=== PATIENT | female | born 1945 | race Caucasian/White ===

== ENCOUNTER 2020-06-14 10:45 | Outpatient (NON) | payer MEDICARE, SELFPAY ==
[2020-06-14 23:03] LABS: SARS-CoV-2 RNA PCR Negative
== END 2020-06-14 10:46 ==
DX: R50.9 Fever, unspecified (principal); Z20.828 Contact with and (suspected) exposure to other viral communicable diseases
CPT/HCPCS: 87635; C9803; U0003

== ENCOUNTER 2021-03-30 15:34 | Emergency (ER) | payer MEDICARE, SELFPAY ==
[2021-03-30] VITALS (18 sets, daily range): BP systolic 94–155; BP diastolic 37–95; PULSE 51–92; RESP 16–22; TEMP 37.2–38.7; O2SAT 96–100
--- NOTE | ~2021-03-30 | CT_ITS ---
EXAMINATION: CT abdomen pelvis w con DATE: 03/30/2021 16:56 INDICATION: Postoperative hematoma. TECHNIQUE: Computed tomography (CT) of the abdomen and pelvis was performed with 100 mL Omnipaque 350 intravenous contrast. Automated exposure control and iterative reconstruction technique were employe d. The dose-length product was 1506.25 mGy-cm. COMPARISON: CT abdomen and pelvis 11/25/2012 FINDINGS: The visualized portions of the lung bases demonstrate mild atelectasis. No pleural effusion . The heart size is normal. There are coronary artery calcifications. No pericardial effusion. The li robbie and spleen are normal. There are changes of cholecystectomy. The pancreas is normal. There are ma sses in the adrenal glands measuring up to 1.8 cm on the left without change, likely adenomas. There is cortical thinning of the kidneys. There is a 9 mm cyst in right kidney. The bladder is decompresse d by Simmons catheter. There is an anastomosis in the rectosigmoid. There is diverticulosis of the colo n without evidence of diverticulitis. The appendix is not visualized. There are no pathologically enl arged lymph nodes. There is no free intraperitoneal fluid. There are midline skin matthew. There is a 23.2 x 6.5 x 8.2 cm hematoma in anterior abdominal wall at the incision. At the superior aspect of the hematoma, there is a serpiginous area of hyperdensity, likely contrast extravasation. There are ventral hernias in the pelvis, one of which contains a portion of the bladde r. There is mild thoracolumbar spondylosis. IMPRESSION: 1. Large hematoma at the anterior abdominal wall incision with active extravasation of contrast. I ca lled this result to Dr. Montaño. 2. Ventral hernias in the pelvis, one of which contains a portion of the bladder. Reviewed, dictated and finalized at location A. IMPRESSION: 1. Large hematoma at the anterior abdominal wall incision with active extravasa tion of contrast. I called this result to Dr. Montaño. 2. Ventral hernias in the pelvis, one of which contains a portion of the bladde r.
--- NOTE | 2021-03-30 15:43 | ECG_ITS ---
Measurements Intervals [place] Rate: 86 P: 60 MT: 169 QRS: 99 QRSD: 94 T: 66 QT: 373 QTc: 447 Interpretive Statements SINUS RHYTHM RIGHT AXIS DEVIATION LOW QRS VOLTAGE IN LIMB LEADS BASELINE WANDER- I, II, AVR, AVF, V1-V3 BORDERLINE ECG Electronically Signed On 03-30-2021 16:35:31 CDT by Domingo Vance D.O.
--- NOTE | 2021-03-30 16:01 | ED.WOUNDLAC ---
HPI - Wound/Laceration General Chief Complaint: Wound/Laceration <Mina Montaño MD - Last Filed: 03/31/21 06:56> Stated Complaint: bleeding to abd <Mina Montaño MD - Last Filed: 03/31/21 06:56> Time Seen by Provider: 03/30/21 15:43 <Mina Montaño MD - Last Filed: 03/31/21 06:56> Source: patient <Mina Montaño MD - Last Filed: 03/31/21 06:56> History of Present Illness HPI narrative: Patient presents with bleeding from a postop wound. Patient reports she had partial colectomy for complicated diverticulitis on March 22 she was discharged home and started her Xarelto few days after her surgery. She noted small amount of bruising yesterday talked her surgeon and they recommended continued monitoring. There is a large amount of blood from her postop site she talk to her surgeon and they recommended evaluation in the ER. Her surgery was performed at [place]. Patient reports feeling lightheaded but denies focal areas of pain nausea vomiting or diarrhea <Mina Montaño MD - Last Filed: 03/31/21 06:56> Related Data Home Medications: Home Medications Medication Instructions Recorded Confirmed oxycodone 03/30/21 potassium chloride meq PO 03/30/21 ramipril mg PO 03/30/21 rivaroxaban mg 03/30/21 rosuvastatin mg 03/30/21 <Mina Montaño MD - Last Filed: 03/31/21 06:56> Allergies/Adverse Reactions: Allergies Allergy/AdvReac Type Severity Reaction Status Date / Time propoxyphene Allergy Mild Unknown Verified 03/30/21 15:56 OPIUM DERIVATIVE Allergy Mild Unknown Uncoded 03/30/21 15:56 <Mina Montaño MD - Last Filed: 03/31/21 06:56> Review of Systems Review of Systems: CONSTITUTIONAL: Denies fever, chills, or sweats. EYES: Denies visual changes, redness, or discharge. ENT: Denies rhinorrhea, congestion, sore throat, or otalgia. CARDIOVASCULAR: Denies chest pain, palpitations, or edema. RESPIRATORY: Denies cough or dyspnea. GASTROINTESTINAL: Denies abdominal pain, nausea, vomiting, or diarrhea. GENITOURINARY: Denies dysuria or hematuria. SKIN: Denies rash or itching. MUSCULOSKELETAL: Denies back pain, joint pain, or myalgia. NEUROLOGIC: Denies headache, numbness, dizziness, or weakness. PSYCHIATRIC: Denies anxiety or depression. <Mina Montaño MD - Last Filed: 03/31/21 06:56> All systems reviewed & are unremarkable except as noted in HPI and below <Mina Montaño MD - Last Filed: 03/31/21 06:56> Exam Narrative: GENERAL: Well-appearing, well-nourished, and in no acute distress. HEAD: Normocephalic, atraumatic. EYES: PERRLA and EOMI. ENT: Nares clear, no rhinorrhea or epistaxis. Mucous membranes moist. NECK: Supple. No masses. No JVD ABDOMEN: Patient with bulky dressings on her abdomen. Dressings were saturated with blood dressings were removed there is small continued bleeding from the inferior aspect of the wound site there is no wound dehiscence there is no apparent material. There is mild distention around the wound site. Mateo remain intact. Patient with minimal pain around the wound site. EXTREMITIES: Normal range of motion. No edema. SKIN: Warm, dry, no rash. NEURO: No focal deficits. Alert and oriented x3. PSYCH: Normal mood and affect. <Mina Montaño MD - Last Filed: 03/31/21 06:56> Course Course Emergency Course: I received signout from Dr. Montaño on the patient this evening. Patient with postoperative complication, abdominal wall hematoma with active extravasation. Patient was transfused 1 unit PRBCs with repeat hemoglobin 8.9. Patient unfortunately has had prolonged wait time for transport, and is now mildly hypotensive 94/61. Called for [facility] transport however no ambulance is available. Unfortunately, area [facility] is not clear to fly secondary to weather. Apparently ground transport is approximately 40 minutes out at 21:54. Patient ordered additional unit PRBC, however then [facility] presented to [facility]
[2021-03-30 16:09] LABS: Basophils Percent Auto 0.2 % (0.2-1.2); Eosinophils Absolute Auto 0.2 K/mm3 (0-0.3); Eosinophils Percent Auto 0.9 % (0-4.4); Hematocrit 29.5 % (37.0-47.0); Hemoglobin 9.1 g/dL (12.0-15.0); Immature Granulocyte Absolute 0.25 K/mm3 (0.00-0.031); Immature Granulocyte Percent A 1.5 % (0-0.5); Lymphocytes Absolute Auto 1.98 K/mm3 (0.9-3.2); Lymphocytes Percent Auto 11.7 % (18.3-44.2); Mean Corpuscular HGB Conc 30.8 g/dl (32-36); Mean Corpuscular Hemoglobin 27.1 pg (26-34); Mean Corpuscular Volume 87.8 fl (80-100); Mean Platelet Volume 8.8 fl (7.4-10.4); Monocytes Absolute Auto 0.9 K/mm3 (0.1-0.6); Monocytes Percent Auto 5.5 % (2.6-8.5); Neutrophils Absolute Auto 13.5 K/mm3 (1.3-6.7); Neutrophils Percent Auto 80.2 % (45.5-73.1); Platelet Count Result 428 k/mm3 (150-375); Red Blood Count 3.36 M/mm3 (4.2-5.4); Red Cell Distribution Width 14.2 % (11.5-14.5); White Blood Count 16.9 K/mm3 (4.5-10.0)
[2021-03-30 16:20] LABS: INR 3.7; Prothrombin Time 35.2 Seconds (11.1-14.7)
[2021-03-30 16:21] LABS: Partial Thromboplastin Time 49.3 SECONDS (22.3-36.8)
[2021-03-30 16:30] LABS: Alanine Aminotransferase 10 U/L (4-35); Albumin Level 3.5 g/dL (3.5-5.1); Alkaline Phosphatase 72 U/L (38-126); Anion Gap 8 mmol/L (8-16); Aspartate Amino Transferase 16 U/L (14-36); Bilirubin,Total 0.7 mg/dL (0.2-1.3); Blood Urea Nitrogen 12 mg/dL (7-17); Carbon Dioxide 31 mmol/L (22-30); Chloride 97 mmol/L (98-107); Estimated Glomerular Filt Rate > 60; Glucose 144 mg/dL (65-110); Potassium 3.4 mmol/L (3.4-5.0); Sodium 136 mmol/L (137-145)
[2021-03-30] MEDS: fentaNYL CITRATE INJ (*CRX) 100 MCG/2 ML VIAL 50 MCG IV PUSH (16:31)
[2021-03-30] MEDS: diphenhydrAMINE HCl INJ 50 MG/ML VIAL 25 MG IV PUSH (16:31)
[2021-03-30 16:41] LABS: Troponin I < 0.012 ng/mL (0.000-0.034)
[2021-03-30 16:58] LABS: Lactic Acid Reflex 1.5 mmol/L (0.7-2.1)
--- NOTE | 2021-03-30 17:46 | PC.NURSE ---
Called lab at 1747, talked to Zackary about the lavender order. Confirmation tube sent at 1703 was received and a new lavender does not need to be drawn.
[2021-03-30] MEDS: SODIUM CHLORIDE 0.9% IV 250 ML 30 ML IV CONT (18:00)
--- NOTE | 2021-03-30 18:00 | PC.NURSE ---
Pt now in a-fib, reports hx of paroxysmal a-fib. made aware. Blood products started.
[2021-03-30] MEDS: TUBING, BLOOD PLUM PUMP TUBING 1 EACH XX (18:37)
--- NOTE | 2021-03-30 18:39 | PC.NURSE ---
Pt appears slightly more tired, remains easily arousable. Made some comments about bridges and that she should've stayed home that she would be more comfortable . Pt reminded of her heavy bleeding. Pt able to answer all orientation questions appropriately. Blood products transfusing. VS remain consistent. Will continue to monitor.
--- NOTE | 2021-03-30 18:47 | PC.NURSE ---
[facility] accepted transfer to [facility] 2029 Trip # [id number]
--- NOTE | 2021-03-30 19:53 | PC.NURSE ---
Report called to Escobar ROES at [facility]. Pt updated and waiting transfer to [facility]. Pt watching TV, requesting pain medication. Will speak with MD. Pt's remains at bedside.
--- NOTE | 2021-03-30 19:55 | PC.NURSE ---
RN to bedside to stop blood transfusion. Pt found to be laying on her right side. Blood seeping through bottom of abd pad, gown, and through blankets. Patient assisted back to supine position and reminded/educated on the importance of lying supine to minimize bleeding. Pt verbalized understanding and provided pain medication. Waiting transfer.
[2021-03-30] MEDS: MORPHINE SULFATE (*CRX) 4 MG/ML INJ IV PUSH (20:09)
[2021-03-30 20:36] LABS: Hematocrit 28.3 % (37.0-47.0); Hemoglobin 8.9 g/dL (12.0-15.0); Mean Corpuscular HGB Conc 31.4 g/dl (32-36); Mean Corpuscular Hemoglobin 28.3 pg (26-34); Mean Corpuscular Volume 89.8 fl (80-100); Mean Platelet Volume 8.8 fl (7.4-10.4); Platelet Count Result 443 k/mm3 (150-375); Red Blood Count 3.15 M/mm3 (4.2-5.4); Red Cell Distribution Width 14.5 % (11.5-14.5); White Blood Count 23.1 K/mm3 (4.5-10.0)
--- NOTE | 2021-03-30 20:55 | PC.NURSE ---
made contact with [employer] for a new eta. company stated it will be 45 minutes from 2049.
[2021-03-30 21:05] LABS: Band Neutrophils Percent 2 % (0-6); Lymphocytes Absolute Manual 2.07 K/mm3 (1.1-4.5); Monocytes Absolute Manual 0.46 K/mm3 (0.1-0.90); Monocytes Percent Manual 2 % (3-9); Neutrophils Absolute Manual 20.55 K/mm3 (1.7-7.2); Neutrophils Percent Manual 87 % (46-73); Total Cells Counted 100
[2021-03-30 21:06] LABS: Hypochromasia 1+ (NORMAL); Platelet Estimate Increased (Adequate)
--- NOTE | 2021-03-30 21:42 | PC.NURSE ---
per dr boswell [facility] have been called on this pt due to a hemorrhage
--- NOTE | 2021-03-30 21:47 | PC.NURSE ---
made contact with [employer] at 2154 company stated crew would be here at 2144 with [employer]. company just stated that their crew has not yet left [place] that they will call to let them know they are cleared to come to [facility]
--- NOTE | 2021-03-30 22:22 | PC.NURSE ---
[facility] has made it to [facility]. crew is aware pt is going to [facility]
--- NOTE | 2021-03-30 22:26 | PC.NURSE ---
made contact with [facility] at 2152 for life flight to [facility]. eta 1hour. [facility] declined due to urgency in getting pt to facility. made contact with [facility] [employer] @ 2200. [facility] declined due to pt already being in the er. company stated they were fine in the er here and gave us an eta with 2300. made contact with [facility] for possible transfer and facility did not have the resources to transfer pt
--- NOTE | 2021-03-30 22:44 | PC.NURSE ---
Report given to [facility]. Patient being transferred now. A&Ox4 at time of transfer, in good spirits. Dressings reinforced, gown changed. BP 100/63.
== END 2021-03-30 22:50 | disposition short-term general hospital (02) ==
PROVIDERS: Emergency Medicine; Emergency Provider Emergency Medicine
DX: L76.32 Postprocedural hematoma of skin and subcutaneous tissue following other procedure (principal); T81.31XA Disruption of external operation (surgical) wound, not elsewhere classified, initial encounter; Z79.01 Long term (current) use of anticoagulants; Z90.49 Acquired absence of other specified parts of digestive tract; K43.9 Ventral hernia without obstruction or gangrene; R94.31 Abnormal electrocardiogram [ECG] [EKG]
CPT/HCPCS: 36415; 36430; 51702; 74177; 80053; 83605; 84484; 85025; 85610; 85730; 86850; 86900; 86901; 86920; 93005; 96361; 96374; 96375; 99285; J1200; J2270; J3010; J7050; P9016; Q9967

== ENCOUNTER 2022-03-04 18:38 | Emergency (ER) | payer MEDICARE, SELFPAY ==
--- NOTE | ~2022-03-04 | XR_ITS ---
EXAMINATION: XR chest 1V portable Exam Date/Time: 03/04/2022 19:18 CDT HISTORY: palpitations, SVT; hx of HTN Comparison: 11/25/12. RESULT: Lines, tubes, and devices: None. Lungs and pleura: Senescent change and bibasilar atelectasis. Cardiomediastinal silhouette: Stable. Other: No acute osseous or upper abdominal finding. IMPRESSION: No acute cardiopulmonary process. Reviewed, dictated and finalized at location K.
[2022-03-04 18:40] VITALS: BP 121/96; PULSE 76; RESP 24; TEMP 36.7; O2SAT 98
--- NOTE | 2022-03-04 18:45 | ED.ARRPALP ---
HPI - Arrhythmia/Palpitations General Chief Complaint: Arrhythmia/Palpitations Stated Complaint: SVT Time Seen by Provider: 03/04/22 18:45 History of Present Illness HPI narrative: Patient is a 76-year-old female with a history of paroxysmal A. fib hypertension, hyperlipidemia, DVT on Xarelto presenting with palpitations. Patient states she first noticed heart palpitations last night. They continued today and then the patient became very lightheaded so they checked her pulse at home and found it to be 200. EMS was called and found the patient to be in SVT. Vagal maneuvers were tried twice without improvement so patient was given 6 mg of adenosine. Patient converted to sinus rhythm following this. Currently, patient states that she feels much better. No longer lightheaded. She denies any chest pain or shortness of breath. She denies headache, fevers, cough, abdominal pain, nausea or vomiting, dysuria. Related Data Home Medications Medication Instructions Recorded Confirmed oxycodone 5 mg tablet 03/30/21 potassium chloride 10 mEq meq PO 03/30/21 tablet,extended release ramipril 10 mg tablet mg PO 03/30/21 rivaroxaban 20 mg tablet mg 03/30/21 rosuvastatin 5 mg tablet mg 03/30/21 Allergies Allergy/AdvReac Type Severity Reaction Status Date / Time propoxyphene Allergy Mild Unknown Verified 03/04/22 18:46 OPIUM DERIVATIVE Allergy Mild Unknown Uncoded 03/04/22 18:46 Review of Systems Review of Systems: All systems reviewed & are unremarkable except as noted in HPI and below Exam Narrative: GENERAL: Well-appearing, well-nourished, and in no acute distress. HEAD: Normocephalic, atraumatic. EYES: PERRLA and EOMI. ENT: Nares clear, no rhinorrhea or epistaxis. Mucous membranes moist. NECK: Supple. CHEST: Clear to auscultation. No respiratory distress. HEART: Regular rate and rhythm. No murmur heard. Normal peripheral pulses. ABDOMEN: large abdominal hernia, Soft, nontender, nondistended, normal active bowel sounds. EXTREMITIES: Normal range of motion. No edema. SKIN: Warm, dry, no rash. NEURO: No focal deficits. Alert and oriented x3. PSYCH: Normal mood and affect. Course Vital Signs Vital signs: Vital Signs Temperature 98.0 F 03/04/22 18:40 Pulse Rate 76 03/04/22 18:40 Respiratory Rate 24 H 03/04/22 18:40 Blood Pressure 121/96 H 03/04/22 18:40 Pulse Oximetry 98 03/04/22 18:40 Oxygen Delivery Room Air 03/04/22 18:40 Temperature 98.0 F 03/04/22 18:40 Pulse Rate 73 03/04/22 21:47 Respiratory Rate 17 03/04/22 21:47 Blood Pressure 132/71 03/04/22 21:47 Pulse Oximetry 98 03/04/22 21:47 Oxygen Delivery Room Air 03/04/22 18:40 MDM - Arrhythmia/Palpitations MDM Narrative Medical decision making narrative: Patient is a 76-year-old female with history as above presenting with palpitations. On arrival, vitals are within normal limits. Patient is well-appearing and in no acute distress. Exam is remarkable for the above. EKG per my interpretation shows normal sinus rhythm, normal axis and intervals, no ST elevations or depressions. Blood work with stable anemia. Troponin is undetectable. Chest x-ray with no acute abnormalities. On reevaluation, the patient continues to feel well. Patient's vitals have remained within normal limits and she has remained in sinus on the monitor. I spoke with cardiology who feels patient can follow-up on an outpatient basis with her established social sciences chair. Patient is agreeable with this plan. Strict return precautions were given. Patient discharged in stable condition. Lab Data Result diagrams: 03/04/22 19:42 03/04/22 19:42 Labs: Lab Results 03/04/22 03/04/22 03/04/22 Range/Units 19:42 19:42 19:42 WBC 7.9 (4.5-10.0) K/mm3 RBC 3.86 L (4.2-5.4) M/mm3 Hgb 9.5 L (12.0-15.0) g/dL Hct 31.7 L (37.0-47.0) % MCV 82.1 (80-100) fl MCH 24.6 L (26-34) pg MCHC 30.0 L (
[2022-03-04 18:47] VITALS: PULSE 76
--- NOTE | 2022-03-04 18:47 | ECG_ITS ---
Measurements Intervals [place] Rate: 82 P: 73 [place]: 169 QRS: 79 QRSD: 92 T: 59 QT: 389 QTc: 455 Interpretive Statements SINUS RHYTHM WITH SINUS ARRHYTHMIA ATRIAL COUPLET BORDERLINE ST-T WAVE ABNORMALITY- HIGH LATERAL LEADS BASELINE ARTIFACT- I, II, III, AVR, AVL BORDERLINE ECG COMPARED TO ECG 03/30/2021 16:33:40 NO SIGNIFICANT CHANGES Electronically Signed On 03-04-2022 21:49:44 CDT by Domingo Vance D.O.
[2022-03-04 19:21] VITALS: BP 136/66; PULSE 71; RESP 14; O2SAT 98
--- NOTE | 2022-03-04 19:21 | PC.NURSE ---
Assumed care of pt at this time. Pt alert and upright on stretcher, family and pt updated on POC.
[2022-03-04 19:47] LABS: Basophils Percent Auto 0.4 % (0.2-1.2); Eosinophils Absolute Auto 0.2 K/mm3 (0-0.3); Eosinophils Percent Auto 2.9 % (0-4.4); Hematocrit 31.7 % (37.0-47.0); Hemoglobin 9.5 g/dL (12.0-15.0); Immature Granulocyte Percent A 1.3 % (0-0.5); Lymphocytes Absolute Auto 2.51 K/mm3 (0.9-3.2); Lymphocytes Percent Auto 31.6 % (18.3-44.2); Mean Corpuscular Hemoglobin 24.6 pg (26-34); Mean Corpuscular Volume 82.1 fl (80-100); Monocytes Absolute Auto 0.5 K/mm3 (0.1-0.6); Monocytes Percent Auto 6.4 % (2.6-8.5); Neutrophils Absolute Auto 4.6 K/mm3 (1.3-6.7); Neutrophils Percent Auto 57.4 % (45.5-73.1); Platelet Count Result 307 k/mm3 (150-375); Red Blood Count 3.86 M/mm3 (4.2-5.4); Red Cell Distribution Width 16.4 % (11.5-14.5); White Blood Count 7.9 K/mm3 (4.5-10.0)
[2022-03-04 19:57] LABS: Alanine Aminotransferase 15 U/L (6-35); Albumin Level 3.5 g/dL (3.5-5.1); Alkaline Phosphatase 117 U/L (38-126); Anion Gap 9 mmol/L (8-16); Aspartate Amino Transferase 23 U/L (14-36); Bilirubin,Total 0.3 mg/dL (0.2-1.3); Blood Urea Nitrogen 17 mg/dL (7-17); Calcium 8.7 mg/dL (8.4-10.2); Carbon Dioxide 24 mmol/L (22-30); Chloride 105 mmol/L (98-107); Estimated Glomerular Filt Rate > 60; Glucose 102 mg/dL (65-110); Potassium 3.7 mmol/L (3.4-5.0); Sodium 138 mmol/L (137-145)
[2022-03-04 20:05] LABS: INR 2.2; Prothrombin Time 23.9 Seconds (11.1-14.7)
[2022-03-04 20:06] LABS: Partial Thromboplastin Time 42.7 SECONDS (22.3-36.8)
[2022-03-04 20:09] LABS: NT Pro B Type Natriuretic Pept 1320 pg/mL (5-100); Troponin I < 0.012 ng/mL (0.000-0.034)
[2022-03-04 20:13] VITALS: PULSE 72; RESP 16; O2SAT 99
[2022-03-04 20:39] VITALS: BP 130/86; PULSE 67; RESP 18
[2022-03-04 21:47] VITALS: BP 132/71; PULSE 73; RESP 17; O2SAT 98
== END 2022-03-04 21:48 | disposition home or self-care (01) ==
PROVIDERS: Emergency Provider Emergency Medicine
DX: I47.1 Supraventricular tachycardia (principal); I48.0 Paroxysmal atrial fibrillation; I10 Essential (primary) hypertension; E78.5 Hyperlipidemia, unspecified; K46.9 Unspecified abdominal hernia without obstruction or gangrene; Z86.718 Personal history of other venous thrombosis and embolism; Z79.01 Long term (current) use of anticoagulants
CPT/HCPCS: 36415; 71045; 80053; 83880; 84484; 85025; 85610; 85730; 93005; 99284

== ENCOUNTER 2022-05-28 21:36 | Emergency (ER) | payer MEDICARE, SELFPAY ==
--- NOTE | ~2022-05-28 | XR_ITS ---
EXAM: XR knee RT min 4V DATE: 05/28/2022 22:15 HISTORY: right knee pain. FELL EARLY ON TONIGHT. . COMPARISON: None available. FINDINGS: Decreased mineralization. Intact total knee arthroplasty components, in good position, and multiple cerclage wires, likely related to patellar realignment. No perihardware lucency. No acute o sseous fracture or dislocation. No lytic or blastic lesion. Joint spaces are maintained. No erosion o r periosteal change. Presumed chronic patellar tendon thickening and enthesopathy. Scattered subcutan eous edema IMPRESSION: No acute osseous finding in the right knee. No radiographic evidence of hardware-related complication. Reviewed, dictated and finalized at location K. MACY SALESPERSON IMPRESSION: No acute osseous finding in the right knee. No radiographic evidenc e of hardware-related complication.
--- NOTE | ~2022-05-28 | XR_ITS ---
EXAMINATION: XR chest 1V Exam Date/Time: 05/28/2022 22:05 LAY OUT MAKER HISTORY: Fall on thinners Comparison: 03/04/2022 and 11/25/2012. RESULT: Lines, tubes, and devices: None. Lungs and pleura: Senescent change. Bibasilar scar/atelectasis. Minimal increased peripheral reticul ar opacities. Cardiomediastinal silhouette: Stable. Other: No acute osseous or upper abdominal finding. IMPRESSION: Mild interstitial edema, otherwise no acute cardiopulmonary process. Reviewed, dictated and finalized at location K. OUT MAKER
--- NOTE | ~2022-05-28 | XR_ITS ---
EXAMINATION: XR hip RT 2V w AP pelvis DATE: 05/28/2022 23:42 INDICATION: Right hip pain. TECHNIQUE: An anteroposterior view of the pelvis and 2 views of right hip were obtained. COMPARISON: Abdomen radiographs 09/01/2009, CT abdomen and pelvis 03/30/2021 FINDINGS: Bone alignment is normal. No fracture. There is mild osteoarthritis of the hips. There is c hronic heterotopic ossification adjacent to right greater trochanter and distal to right ischial tube rosity. Partially visualized is instrumentation of distal right femur. There is mild lumbar spondylos is. Surgical clips overlie the pelvis. IMPRESSION: 1. Mild osteoarthritis of the hips. Reviewed, dictated and finalized at location A. TITUTE CROSSING GUARD
--- NOTE | ~2022-05-28 | CT_ITS ---
EXAMINATION: CT facial & cervical spine wo DATE: 05/28/2022 22:29 INDICATION: Fall on thinners TECHNIQUE: Computed tomography (CT) of the maxillofacial region and cervical spine was performed with out intravenous contrast. Automated exposure control and iterative reconstruction technique were empl oyed. The dose-length product was 386.07 mGy-cm. COMPARISON: None FINDINGS: CERVICAL: Vertebral Body Alignment: Reversed cervical lordosis which can occur with positioning or muscle spasm . 2 mm anterolisthesis of C2 on 3, presumably on a degenerative basis. Craniocervical and atlantoaxial alignment: Moderate degenerative change. Alignment intact. Osseous structures/fracture: No evidence of a lytic or blastic process in the visualized spine. No e vidence of acute fracture. Cervical soft tissues: The paraspinal soft tissues planes are maintained. Reticular and groundglass o pacities in the upper lungs. Degenerative changes: Multilevel degenerative disc disease and facet arthropathy. No severe central c anal or neural foraminal narrowing. FACE: Soft Tissues: No significant superficial soft tissue swelling. Facial bones: Mild deformity and leftward displacement of the nasal bones. No lytic or blastic proce ss. Eyes: The globes are intact. Bilateral lens replacements. The soft tissue planes of the orbits are m aintained. Paranasal Sinuses: Mild mucosal thickening in the ethmoid sphenoid and maxillary sinuses. Aerated se cretions in the bilateral maxillary and sphenoid sinuses. Trace left mastoid fluid, without evidence of temporal bone fracture. Foreign Bodies: No radiopaque foreign bodies. Other Findings: None. IMPRESSION: No acute fracture or traumatic malalignment in the cervical spine. Pulmonary opacities may represent interstitial edema. Possible nasal bone fractures, correlate with pain/tenderness. Paranasal sinus fi ndings may reflect acute sinusitis or mucosal hemorrhage in the setting of trauma. Reviewed, dictated and finalized at location K. OW UP SPECIALIST IMPRESSION: No acute fracture or traumatic malalignment in the cervical spine. Pulmonary op acities may represent interstitial edema. Possible nasal bone fractures, correl ate with pain/tenderness. Paranasal sinus findings may reflect acute sinusitis or mucosal hemorrhage in the setting of trauma.
--- NOTE | ~2022-05-28 | CT_ITS ---
EXAMINATION: CT brain wo con DATE: 05/28/2022 22:29 INDICATION: Fall on thinners . TECHNIQUE: Computed tomography (CT) of the head was performed without intravenous contrast. The mA wa s adjusted according to patient size. Iterative reconstruction technique was employed. The dose-lengt h product was 605.33 mGy-cm. COMPARISON: None. FINDINGS: No acute intracranial hemorrhage or extra-axial fluid collection. No hydrocephalus, mass, or herniation. No acute ischemic infarct. Unremarkable dural venous sinus attenuation. No acute osseous abnormality in the skull. Right posterior osteoma. Mild irregularity and leftward di splacement of the nasal bones. Aerated secretions in the maxillary and sphenoid sinuses aerated spaces are clear. Mild atrophy and chronic white matter change. Prominent CSF density bifrontal extra-axial spaces with a possible right hemispheric arachnoid cyst near the vertex. Atherosclerotic intracranial calcificat ion. Bilateral lens replacements. IMPRESSION: No acute intracranial process. Possible nasal bone fracture. Aerated secretions in the paranasal sinu ses may represent acute sinusitis or mucosal hemorrhage in the setting of trauma Reviewed, dictated and finalized at location [facility] IMPRESSION: No acute intracranial process. Possible nasal bone fracture. Aerated secretions in the paranasal sinuses may represent acute sinusitis or mucosal hemorrhage i n the setting of trauma
[2022-05-28 21:38] VITALS: BP 184/76; PULSE 55; RESP 20; TEMP 36.6; O2SAT 100
--- NOTE | 2022-05-28 21:48 | ECG_ITS ---
Measurements Intervals [place] Rate: 49 P: 72 [place]: 189 QRS: 97 QRSD: 101 T: 74 QT: 407 QTc: 370 Interpretive Statements SINUS BRADYCARDIA BORDERLINE RIGHT AXIS DEVIATION [QRS AXIS > 90] NONSPECIFIC ST AND T-WAVE ABNORMALITY COMPARED TO ECG 03/04/2022 18:43:39 SINUS BRADYCARDIA NOW PRESENT Electronically Signed On 05-29-2022 16:22:34 OVERNIGHT ASSOCIATE by Natalia Mooney M.D.
[2022-05-28] MEDS: ACETAMINOPHEN 500 MG TABLET 1000 MG PO (22:38)
--- NOTE | 2022-05-28 22:55 | ED.GENADULT ---
HPI - General Adult General Chief complaint: Wound/Laceration <JAN Jane Last Filed: 05/29/22 01:59> Stated complaint: Fall, Hit Head, Nose Laceration <JAN Jane Last Filed: 05/29/22 01:59> Time Seen by Provider: 05/28/22 22:05 <JAN Jane Last Filed: 05/29/22 01:59> Source: patient and family <JAN Jane Last Filed: 05/29/22 01:59> Mode of arrival: EMS <JAN Jane Last Filed: 05/29/22 01:59> Limitations: no limitations <JAN Jane Last Filed: 05/29/22 01:59> History of Present Illness HPI narrative: Patient is a 76-year-old female who presents the ED via EMS with report of a fall with head injury. Patient reports she was walking with her walker today when she tripped over her [employer] sandals. She fell to the ground and hit her head against the tile floor. She sustained a small abrasion to the bridge of her nose and did have bilateral epistaxis. No LOC. Family was unable to get patient off the ground so EMS was called. Patient also c/o pain to her R knee and R hip. She sustained a small skin tear to her inner R forearm. She denied any prodromal sx's prior to the fall, dizziness, lightheadedness, headache, CP, nausea, vomiting, neck pain, back pain. Patient does mention being slightly SOB recently. She is recovering from COVID 19 last week. Patient is on Eliquis d/t Hx of afib. <JAN Jane Last Filed: 05/29/22 01:59> Related Data Home medications: Home Medications Medication Instructions Recorded Confirmed oxycodone 5 mg tablet 03/30/21 potassium chloride 10 mEq meq PO 03/30/21 tablet,extended release ramipril 10 mg tablet mg PO 03/30/21 rivaroxaban 20 mg tablet mg 03/30/21 rosuvastatin 5 mg tablet mg 03/30/21 <Vania Carranza PA-C - Last Filed: 05/29/22 01:59> Allergies/adverse reactions: Allergies Allergy/AdvReac Type Severity Reaction Status Date / Time propoxyphene Allergy Mild Unknown Verified 03/04/22 18:46 OPIUM DERIVATIVE Allergy Mild Unknown Uncoded 03/04/22 18:46 <Vania Carranza PA-C - Last Filed: 05/29/22 01:59> Review of Systems Review of Systems: CONSTITUTIONAL: Denies fever, chills, or sweats. EYES: Denies visual changes. ENT: Reports epistaxis. Denies rhinorrhea, congestion, sore throat. CARDIOVASCULAR: Denies chest pain, palpitations. RESPIRATORY: Denies cough or dyspnea. GASTROINTESTINAL: Denies abdominal pain, nausea, vomiting, or diarrhea. GENITOURINARY: Denies dysuria or hematuria. SKIN: Reports skin tear to R forearm. MUSCULOSKELETAL: Reports R knee pain, R hip pain. Denies neck or back pain. NEUROLOGIC: Reports HI. Denies LOC, dizziness, lightheadedness, headache, numbness, or weakness. <Vania Carranza PA-C - Last Filed: 05/29/22 01:59> All systems reviewed & are unremarkable except as noted in HPI and below <Vania Carranza PA-C - Last Filed: 05/29/22 01:59> [facility] Past Medical History Medical History: Medical History (Updated 05/30/22 @ 00:00 by Maia Daniel) Anxiety Atrial fibrillation CHF (congestive heart failure) GERD (gastroesophageal reflux disease) History of femur fracture HTN (hypertension) <Vania Carranza PA-C - Last Filed: 05/29/22 01:59> Surgical History Surgical History: Surgical History (Updated 05/29/22 @ 00:16 by Vania Carranza PA-C) History of right knee joint replacement <Vania Carranza PA-C - Last Filed: 05/29/22 01:59> Social History Social History: Social History (Updated 05/29/22 @ 00:17 by Vania Carranza PA-C) Smoking status: Never smoker <Vania Carranza PA-C - Last Filed: 05/29/22 01:59> Exam Narrative: GENERAL: Well appearing, morbidly obese, non-toxic, in no acute distress. HEAD: Normocephalic, atraumatic. EYES: PERRLA/EOMI, conjunctiva clear. ENT: Small abrasion to bridge of
[2022-05-28 23:56] VITALS: BP 160/64; PULSE 52; RESP 18; O2SAT 93
[2022-05-28 23:57] LABS: Appearance Urine Cloudy (Clear); Bilirubin Urine Negative (Negative); Blood Urine Trace-intact (Negative); Color Urine Yellow (Yellow); Glucose Urine UA Negative (Negative); Ketones Urine Negative (Negative); Leukocyte Esterase Ur 1+ LEU/UL (Negative); Nitrate Urine Positive (Negative); Protein Urine 2+ mg/dL (Negative); Specific Grav Ur 1.015 (1.001-1.035); Urobilinogen Urine 0.2 mg/dL (<2.0); pH Urine 6.5 (5.0-9.0)
[2022-05-29 00:01] LABS: Bacteria Urine 3+ /hpf; Mucus Urine Rare /lpf; RBC Urine 0-2 /hpf (0-2); Squamous Epithelial Cell Urine Few /hpf (Few); WBC Urine 21-30 /hpf
[2022-05-29 00:02] LABS: Add Urine Microscopic? YES
[2022-05-29 00:21] LABS: NT Pro B Type Natriuretic Pept 1810 pg/mL (5-100); Troponin I < 0.012 ng/mL (0.000-0.034)
[2022-05-29] MEDS: CEPHALEXIN 500 MG CAPSULE PO (01:06)
[2022-05-29 01:07] VITALS: BP 177/67; PULSE 52; RESP 19; O2SAT 92
[2022-05-29 01:12] LABS: Glucose Point of Care 148 mg/dl (65-105)
== END 2022-05-29 02:00 | disposition home or self-care (01) ==
PROVIDERS: Physician Assistant; Emergency Provider Emergency Medicine
DX: S02.2XXA Fracture of nasal bones, initial encounter for closed fracture (principal); S51.811A Laceration without foreign body of right forearm, initial encounter; N39.0 Urinary tract infection, site not specified; I48.91 Unspecified atrial fibrillation; I50.9 Heart failure, unspecified; I11.0 Hypertensive heart disease with heart failure; K21.9 Gastro-esophageal reflux disease without esophagitis; Z96.651 Presence of right artificial knee joint; Z86.16 Personal history of COVID-19; Z79.01 Long term (current) use of anticoagulants; R00.1 Bradycardia, unspecified; R94.31 Abnormal electrocardiogram [ECG] [EKG]; M16.0 Bilateral primary osteoarthritis of hip; J81.1 Chronic pulmonary edema; W18.09XA Striking against other object with subsequent fall, initial encounter
CPT/HCPCS: 36415; 70450; 70486; 71045; 72125; 73502; 73564; 81001; 82948; 83880; 84484; 87077; 87086; 87186; 93005; 99284; A9270

== ENCOUNTER 2022-08-08 12:09 | Outpatient (RCR) | payer MEDICARE, SELFPAY | END 2022-08-08 12:12 | disposition home or self-care (01) | LOC: ANHPT 12:09 | PROVIDERS: Visit Provider Specialist | DX: Z47.1 Aftercare following joint replacement surgery (principal); Z96.652 Presence of left artificial knee joint | CPT/HCPCS: 99199 ==

== ENCOUNTER 2023-01-09 18:07 | Emergency (ER) | payer MEDICARE, SELFPAY ==
[2023-01-09] VITALS (17 sets, daily range): BP systolic 114–155; BP diastolic 76–107; PULSE 68–161; RESP 17–24; TEMP 36.6; O2SAT 91–96
--- NOTE | ~2023-01-09 | CT_ITS ---
EXAMINATION: CTA chest abdomen pelvis DATE: 01/09/2023 19:47 CDT INDICATION: Atrial fibrillation. Mesenteric ischemia. Small bowel obstruction. TECHNIQUE: Computed tomographic angiography (CTA) of the chest, abdomen, and pelvis was performed wit hout and with 100 mL Omnipaque-350 intravenous contrast. The dose-length product was 1686.89 mGy-cm. Maximum intensity projection 3D-reconstructions of the aorta and other arteries were constructed by flores casas technologist on a separate workstation. COMPARISON: None. FINDINGS: CHEST CTA: No evidence for aortic aneurysm or dissection. The celiac axis, SMA, renal arteries are patent. The I MA appears to be thrombosed. No significant pleural or pericardial effusion. No thoracic lymphadenopa thy. Calcified granuloma right upper thorax. No endobronchial lesions. There is dependent atelectasis . No evidence for pulmonary embolism. There is scoliosis. ABDOMEN AND PELVIS CTA: There is atherosclerosis. No aneurysm or dissection. No lymphadenopathy. There is a large right parac entral hernia containing bowel. Contained in the hernia are normal caliber and dilated small bowel lo ops. No definitive transition site is identified. The liver, spleen, pancreas, and kidneys are unrema rkable. There are bilateral adrenal masses which are low density, most likely benign adenomas. There are cholecystectomy clips. IMPRESSION: 1. Dilated fluid-filled small bowel loops with normal caliber distal small bowel. Definitive transiti on site not identified. Occluded inferior mesenteric artery. Differential diagnosis includes ischemic bowel and small bowel obstruction secondary to adhesions or hernia. Reviewed, dictated and finalized at location A. IMPRESSION: 1. Dilated fluid-filled small bowel loops with normal caliber distal small vijay l. Definitive transition site not identified. Occluded inferior mesenteric jessica ry. Differential diagnosis includes ischemic bowel and small bowel obstruction secondary to adhesions or hernia.
[2023-01-09 18:33] LABS: Basophils Percent Auto 0.3 % (0.2-1.2); Eosinophils Percent Auto 0.1 % (0-4.4); Hematocrit 42.1 % (37.0-47.0); Hemoglobin 13.3 g/dL (12.0-15.0); Immature Granulocyte Absolute 0.18 K/mm3 (0.00-0.031); Immature Granulocyte Percent A 1.2 % (0-0.5); Lymphocytes Absolute Auto 1.55 K/mm3 (0.9-3.2); Lymphocytes Percent Auto 10.5 % (18.3-44.2); Mean Corpuscular HGB Conc 31.6 g/dl (32-36); Mean Corpuscular Hemoglobin 28.1 pg (26-34); Monocytes Absolute Auto 0.6 K/mm3 (0.1-0.6); Monocytes Percent Auto 3.8 % (2.6-8.5); Neutrophils Absolute Auto 12.4 K/mm3 (1.3-6.7); Neutrophils Percent Auto 84.1 % (45.5-73.1); Platelet Count Result 324 k/mm3 (150-375); Red Blood Count 4.73 M/mm3 (4.2-5.4); Red Cell Distribution Width 16.2 % (11.5-14.5); White Blood Count 14.7 K/mm3 (4.5-10.0)
[2023-01-09 18:40] LABS: Alanine Aminotransferase 21 U/L (6-35); Albumin Level 4.5 g/dL (3.5-5.1); Alkaline Phosphatase 125 U/L (38-126); Anion Gap 12 mmol/L (8-16); Aspartate Amino Transferase 20 U/L (14-36); Bilirubin,Total 1.1 mg/dL (0.2-1.3); Blood Urea Nitrogen 23 mg/dL (7-17); Calcium 9.3 mg/dL (8.4-10.2); Carbon Dioxide 27 mmol/L (22-30); Chloride 101 mmol/L (98-107); Estimated Glomerular Filt Rate > 60; Glucose 151 mg/dL (65-110); Lipase 70 U/L (23-300); Potassium 4.1 mmol/L (3.4-5.0); Sodium 140 mmol/L (137-145)
--- NOTE | 2023-01-09 19:02 | ECG_ITS ---
Measurements Intervals [place] Rate: 133 P: [place]: 0 QRS: 95 QRSD: 93 T: 32 QT: 310 QTc: 462 Interpretive Statements ATRIAL FIBRILLATION WITH RAPID VENTRICULAR RESPONSE RIGHT AXIS DEVIATION BORDERLINE ST-T WAVE ABNORMALITY- INF/LAT LEADS BASELINE ARTIFACT- I, III, AVL ABNORMAL ECG COMPARED TO ECG 05/28/2022 23:59:41 ATRIAL FIBRILLATION NOW PRESENT Electronically Signed On 01-09-2023 21:12:13 CDT by Domingo Vance D.O.
--- NOTE | 2023-01-09 19:09 | ED.GENADULT ---
HPI - General Adult General Chief complaint: Abdominal Pain Stated complaint: abd pain/vomiting Time Seen by Provider: 01/09/23 19:02 History of Present Illness HPI narrative: 77 year old female history of multiple abdominal surgeries, atrial fibrillation on eliquis presented with abdominal pain. Per patient, for the past day she has been having epigastric abodminal pain, now generalized. This has been associated with nausea and non bilious non bloody emesis. Denied fevers/chills, chest pain, shortness of breath, dysuria, diarrhea, sick contacts. Related Data Home Medications Medication Instructions Recorded Confirmed oxycodone 5 mg tablet 03/30/21 potassium chloride 10 mEq meq PO 03/30/21 tablet,extended release ramipril 10 mg tablet mg PO 03/30/21 rivaroxaban 20 mg tablet mg 03/30/21 rosuvastatin 5 mg tablet mg 03/30/21 Allergies Allergy/AdvReac Type Severity Reaction Status Date / Time propoxyphene Allergy Mild Unknown Verified 03/04/22 18:46 adhesive tape Allergy Unknown Verified 01/09/23 19:05 hydromorphone [From Dilaudid] AdvReac Hallucinati Verified 01/09/23 19:17 ng OPIUM DERIVATIVE Allergy Mild Unknown Uncoded 03/04/22 18:46 Review of Systems Review of Systems: See HPI [facility] Past Medical History Medical History Anxiety Atrial fibrillation CHF (congestive heart failure) GERD (gastroesophageal reflux disease) History of femur fracture HTN (hypertension) Surgical History Surgical History History of right knee joint replacement Social History Social History (Updated 05/29/22 @ 00:17 by Vania Carranza PA-C) Smoking status: Never smoker Exam Narrative: General: Alert, calm and cooperative, no acute distress, phonating, sitting comfortably during visit HEENT: Pupils equal round and reactive to light, extra ocular movements intact, no conjunctival injection, head atraumatic, neck supple without meningismus Cardiovascular: Regular rate and rhythm, no visible jugular venous distension Respiratory: Lungs clear to auscultation bilaterally, no wheezing/rales/rhonchi Abdominal: Surgical scar well healed, abdominal hernia noted, reducible, no overlying skin changes, abdominal tenderness over the protrusion, lower chronic wound without surrounding erythema soft, non-distended, no guarding, no rebound/peritoneal signs, no costovertebral tenderness to palpation Back: no midline tenderness to palpation, no step offs Extremities: No edema, palpable peripheral pulses, warm, well perfused, no tenderness to bilateral calves Neurological: Alert, moving all extremities symmetrically Course Consultations Consultation #1: Occluded small inferior mesenteric artery with dilated small loops bowel, concern for acute embolic mesenteric ischemia. [facility] Called for vascular surgery. Date: 01/09/23 Time: 20:02 Consultation #2: Case discussed with General surgery Dr. Benson, accepted patient Date: 01/09/23 Time: 20:22 Consultation #3: Case discussed with vascular surgery Dr. Siddiqui, accepted patient. Case discussed with ED Dr Rice, accepted patient. Vital Signs Vital signs: Vital Signs Temperature 98 F 01/09/23 18:14 Pulse Rate 68 01/09/23 18:14 Respiratory Rate 20 01/09/23 18:14 Blood Pressure 125/107 H 01/09/23 18:14 Pulse Oximetry 95 01/09/23 18:14 Oxygen Delivery Room Air 01/09/23 18:14 Temperature 98 F 01/09/23 18:14 Pulse Rate 147 H 01/09/23 21:16 Respiratory Rate 18 01/09/23 21:16 Blood Pressure 149/87 H 01/09/23 21:16 Pulse Oximetry 93 01/09/23 21:16 Oxygen Delivery Room Air 01/09/23 18:14 Procedures Other Procedure Procedure 1: Other Procedure: Total critical care time: Approximately?45 minutes Due to a high probability of clinically significant, life threatening deterioration, the patient required my highest level of p
[2023-01-09] MEDS: SODIUM CHLORIDE 0.9% IV 1,000 ML 999 ML IV CONT (19:25)
[2023-01-09] MEDS: MORPHINE SULFATE (*CRX) 4 MG/ML INJ IV PUSH ×2 (19:25→21:18)
[2023-01-09 19:38] LABS: Lactic Acid Reflex 1.3 mmol/L (0.7-2.0)
[2023-01-09 19:38] LABS: Troponin I < 0.012 ng/mL (0.000-0.034)
[2023-01-09] MEDS: HEPARIN SODIUM 5,000 UNITS/ML VIAL 4000 UNITS IV PUSH (20:41)
[2023-01-09] MEDS: HEPARIN SOD/D5W 100 UNITS/ML 25,000 UNITS/250 ML BAG 8 UNITS IV CONT (20:41)
[2023-01-09] MEDS: PIPERACILLN/TAZ 3.375GM/NS50ML 3.375 GM/50 ML BAG IVPB (20:42)
[2023-01-09] MEDS: PHARMACIST COMMUNICATION ORDER 1 EACH XX (20:47)
--- NOTE | 2023-01-09 20:57 | PC.NURSE ---
This RN spoke with Dr Belcher about treating patients HR of 156 and MD stated only via pain medication. Pt not requesting paid meds at this time. Will continue to monitor.
[2023-01-09] MEDS: LACTATED RINGERS 1,000 ML 999 ML IV CONT (21:17)
== END 2023-01-09 21:30 | disposition short-term general hospital (02) ==
PROVIDERS: General Practice; Emergency Provider Emergency Medicine
DX: K55.059 Acute (reversible) ischemia of intestine, part and extent unspecified (principal); I48.91 Unspecified atrial fibrillation; R94.31 Abnormal electrocardiogram [ECG] [EKG]; Z79.01 Long term (current) use of anticoagulants; F41.9 Anxiety disorder, unspecified; I11.0 Hypertensive heart disease with heart failure; I50.9 Heart failure, unspecified; K21.9 Gastro-esophageal reflux disease without esophagitis
CPT/HCPCS: 36415; 71275; 74174; 80053; 83605; 83690; 84484; 85025; 87040; 93005; 96361; 96365; 96367; 96375; 99285; J1644; J2270; J2543; J7030; J7120; Q9967